=== PATIENT | male | born 1985 | race Caucasian/White ===

== ENCOUNTER 2022-06-17 21:37 | Inpatient (IN) | payer BC, OTHER ==
[2022-06-17] MEDS ORDERED: Acetaminophen 500 MG Tab PO ONE (21:58)
[2022-06-17] MEDS ORDERED: Sodium Chloride 0.9% 10 ML Syringe FLUSH PRN (22:02)
[2022-06-17] MEDS ORDERED: Lactated Ringers 1,000 ML IV ONE ×2 (22:03→23:30)
[2022-06-17] MEDS: Sodium Chloride 0.9% 10 ML Syringe FLUSH PRN ×2 (22:26→22:27)
[2022-06-17 22:28] LABS: BASE EXCESS VENOUS 0.6 mm/L; BASOPHILS ABSOLUTE AUTO 0.06 K/uL (0.00-0.10); BASOPHILS PERCENT AUTO 0.3 % (0.1-1.3); BICARBONATE,VENOUS 25.3 mmol/L; CARBOXYHEMOGLOBIN 2.2 % (0.0-1.6); EOSINOPHILS ABSOLUTE AUTO 0.04 K/uL (0.00-0.40); EOSINOPHILS PERCENT AUTO 0.2 % (0.0-5.4); HEMATOCRIT 41.8 % (38.4-49.7); IMMATURE GRAN ABSOLUTE AUTO 0.21 K/uL (0.00-0.23); LYMPHOCYTES ABSOLUTE AUTO 0.64 K/uL (0.8-3.3); LYMPHOCYTES PERCENT AUTO 2.9 % (11.4-47.7); MEAN CORPUSCULAR HEMOGLOBIN 28.1 pg (31.6-35.5); MEAN CORPUSCULAR HGB CONC 31.1 g/dL (31.6-35.5); MEAN CORPUSCULAR VOLUME 90.5 fL (81.4-99.0); METHEMOGLOBIN 0.7 %; MONOCYTES ABSOLUTE AUTO 1.11 K/uL (0.20-0.90); MONOCYTES PERCENT AUTO 5.1 % (3.3-12.6); NEUTROPHILS ABSOLUTE AUTO 19.88 K/uL (1.0-7.6); NEUTROPHILS PERCENT AUTO 90.5 % (40.0-78.1); O2 SATURATION VENOUS 45.3; PCO2 VENOUS 42.9 mm/Hg; PH,VENOUS 7.388 (7.350-7.450); PLATELET COUNT,PLT 309 K/uL (130-375); RED BLOOD CELL COUNT 4.62 M/uL (4.14-5.76); TOTAL HEMOGLOBIN 13.4 g/dL (13.5-18.0); WHITE BLOOD CELL COUNT,WBC 21.9 K/uL (3.2-11.0)
[2022-06-17 22:30] LABS: PO2 VENOUS 27.8 mm/Hg
[2022-06-17] MEDS ORDERED: Vancomycin 1 GM SDV ONE (22:38)
[2022-06-17 22:45] LABS: A/G RATIO 0.7 (1.2-2.2); ALANINE AMINOTRANSFERASE,ALT 81 U/L (12-78); ALBUMIN 3.5 g/dL (3.4-5.0); ALKALINE PHOSPHATASE 85 U/L (46-116); ASPARTATE AMNIOTRANSFERASE,AST 58 U/L (15-37); BILIRUBIN TOTAL 0.6 mg/dL (0.2-1.0); BLOOD UREA NITROGEN,BUN 13 mg/dL (7-18); CARBON DIOXIDE,CO2 26 mmol/L (21-32); CHLORIDE,CL 100 mmol/L (100-108); ESTIMATED GFR 100 mL/min (>60); GLUCOSE RANDOM 101 mg/dL (74-106); POTASSIUM,K 4.5 mmol/L (3.6-5.2); PROTEIN TOTAL,TP 8.2 g/dL (6.4-8.2); SODIUM,NA 134 mmol/L (140-148)
[2022-06-17 22:53] LABS: LACTIC ACID 1.9 mmol/L (0.4-2.0)
[2022-06-17] MEDS ORDERED: VANCOMYCIN IV SCH (23:00)
[2022-06-17] MEDS ORDERED: SODIUM CHLORIDE 0.9% IV SCH (23:00)
[2022-06-17 23:04] LABS: ANION GAP 12.5 mmol/L (5.0-14.0)
[2022-06-17 23:25] LABS: APPEARANCE,URINE CLEAR (CLEAR); BILIRUBIN,URINE NEGATIVE (NEGATIVE); COLOR,URINE YELLOW (YELLOW); GLUCOSE,URINE NEGATIVE (NEGATIVE); KETONES,URINE NEGATIVE (NEGATIVE); LEUKOCYTE ESTERASE,URINE NEGATIVE (NEGATIVE); NITRITE,URINE NEGATIVE (NEGATIVE); OCCULT BLOOD,URINE NEGATIVE (NEGATIVE); PH,URINE 5.5 (5.0-8.0); PROTEIN,URINE NEGATIVE (NEGATIVE); UROBILINOGEN,URINE 0.2 EU/dL (0.2-1.0)
[2022-06-17 23:33] LABS: AMORPHOUS SEDIMENT,URINE NOT SEEN; BACTERIA,URINE RARE; EPITHELIAL CELLS,URINE FEW; MUCUS,URINE NOT SEEN; RBC,URINE 0-5 (0-5); WBC,URINE 0-5 (0-5)
[2022-06-17] MEDS ORDERED: Ibuprofen 600 MG Tab PO ONE (23:45)
[2022-06-17] MEDS ORDERED: Ibuprofen 600 MG Tab ONE (23:47)
[2022-06-18] MEDS ORDERED: Lactated Ringers 1,000 ML IV SCH (00:30)
[2022-06-18] MEDS: Acetaminophen 325 MG Tab PO PRN ×4 (02:20→22:10)
[2022-06-18 04:33] LABS: HEMATOCRIT 38.6 % (38.4-49.7); HEMOGLOBIN 12.1 g/dL (12.9-16.9); MEAN CORPUSCULAR HGB CONC 31.3 g/dL (31.6-35.5); MEAN CORPUSCULAR VOLUME 89.4 fL (81.4-99.0); RED BLOOD CELL COUNT 4.32 M/uL (4.14-5.76)
[2022-06-18 04:58] LABS: WHITE BLOOD CELL COUNT,WBC 33.3 K/uL (3.2-11.0)
[2022-06-18 05:02] LABS: A/G RATIO 0.7 (1.2-2.2); ALANINE AMINOTRANSFERASE,ALT 69 U/L (12-78); ALBUMIN 3.1 g/dL (3.4-5.0); ALKALINE PHOSPHATASE 72 U/L (46-116); ASPARTATE AMNIOTRANSFERASE,AST 44 U/L (15-37); BILIRUBIN TOTAL 0.7 mg/dL (0.2-1.0); BLOOD UREA NITROGEN,BUN 14 mg/dL (7-18); CALCIUM 8.4 mg/dL (8.5-10.1); CARBON DIOXIDE,CO2 22 mmol/L (21-32); CHLORIDE,CL 101 mmol/L (100-108); CREATININE 1.1 mg/dL (0.8-1.3); ESTIMATED GFR 89 mL/min (>60); GLUCOSE RANDOM 110 mg/dL (74-106); POTASSIUM,K 3.8 mmol/L (3.6-5.2); PROTEIN TOTAL,TP 7.3 g/dL (6.4-8.2); SODIUM,NA 133 mmol/L (140-148)
[2022-06-18 05:14] LABS: ANION GAP 13.8 mmol/L (5.0-14.0)
[2022-06-18 08:45] LABS: HEMOGLOBIN A1C 5.8 % (4.5-6.2)
[2022-06-18] MEDS: Ibuprofen 600 MG Tab PO PRN ×3 (09:55→22:10)
[2022-06-18] MEDS: Multivitamins with Iron/Calcium/Folic Acid/Minerals Tab PO SCH (09:57)
[2022-06-18] MEDS: Triamcinolone Acetonide 0.1% Oint 15 GM Tube TOP SCH ×2 (11:59→20:51)
[2022-06-18] MEDS: Lactated Ringers 1,000 ML IV SCH (20:03)
[2022-06-18] MEDS: Nicotine 21 MG/24 Hr Patch TRDERM PRN (20:51)
[2022-06-19] MEDS: Acetaminophen 325 MG Tab PO PRN ×3 (02:06→17:58)
[2022-06-19] MEDS: Ibuprofen 600 MG Tab PO PRN ×2 (06:10→20:00)
[2022-06-19 06:12] LABS: HEMATOCRIT 41.6 % (38.4-49.7); HEMOGLOBIN 12.9 g/dL (12.9-16.9); MEAN CORPUSCULAR HEMOGLOBIN 28.1 pg (31.6-35.5); MEAN CORPUSCULAR VOLUME 90.6 fL (81.4-99.0); RED BLOOD CELL COUNT 4.59 M/uL (4.14-5.76); WHITE BLOOD CELL COUNT,WBC 16.7 K/uL (3.2-11.0)
[2022-06-19 06:29] LABS: CALCIUM 8.9 mg/dL (8.5-10.1); CREATININE 0.9 mg/dL (0.8-1.3); EST CRCL DRUG DOSING (CG) 124.54 mL/min; POTASSIUM,K 3.9 mmol/L (3.6-5.2)
[2022-06-19 06:38] LABS: ANION GAP 10.9 mmol/L (5.0-14.0)
[2022-06-19] MEDS: Lactated Ringers 1,000 ML IV SCH (07:26)
[2022-06-19] MEDS: Triamcinolone Acetonide 0.1% Oint 15 GM Tube TOP SCH ×2 (09:06→21:31)
[2022-06-19] MEDS: Multivitamins with Iron/Calcium/Folic Acid/Minerals Tab PO SCH (09:06)
[2022-06-19] MEDS: Nicotine 21 MG/24 Hr Patch TRDERM PRN (10:09)
[2022-06-20] MEDS: Ibuprofen 600 MG Tab PO PRN ×2 (04:34→23:20)
[2022-06-20 04:54] LABS: HEMATOCRIT 36.3 % (38.4-49.7); HEMOGLOBIN 11.3 g/dL (12.9-16.9); MEAN CORPUSCULAR HEMOGLOBIN 28.2 pg (31.6-35.5); MEAN CORPUSCULAR HGB CONC 31.1 g/dL (31.6-35.5); MEAN CORPUSCULAR VOLUME 90.5 fL (81.4-99.0); RED BLOOD CELL COUNT 4.01 M/uL (4.14-5.76); WHITE BLOOD CELL COUNT,WBC 10.9 K/uL (3.2-11.0)
[2022-06-20 05:10] LABS: C-REACTIVE PROTEIN 19.85 mg/dL (0.0-0.3); CALCIUM 8.4 mg/dL (8.5-10.1); CREATININE 0.9 mg/dL (0.8-1.3); EST CRCL DRUG DOSING (CG) 124.72 mL/min; POTASSIUM,K 3.6 mmol/L (3.6-5.2)
[2022-06-20 05:21] LABS: ANION GAP 13.6 mmol/L (5.0-14.0)
[2022-06-20] MEDS: Multivitamins with Iron/Calcium/Folic Acid/Minerals Tab PO SCH (08:30)
[2022-06-20] MEDS: Triamcinolone Acetonide 0.1% Oint 15 GM Tube TOP SCH ×2 (08:31→21:08)
[2022-06-20] MEDS: Nicotine 21 MG/24 Hr Patch TRDERM PRN (10:53)
[2022-06-20] MEDS: Acetaminophen 325 MG Tab PO PRN (17:58)
[2022-06-21 06:58] VITALS: BP 137/93; PULSE 84
[2022-06-21] MEDS ORDERED: Sulfamethoxazole/Trimethoprim 800-160 MG Tab PO SCH (09:00)
[2022-06-21] MEDS: Multivitamins with Iron/Calcium/Folic Acid/Minerals Tab PO SCH (09:34)
[2022-06-21] MEDS: Triamcinolone Acetonide 0.1% Oint 15 GM Tube TOP SCH (09:35)
== END 2022-06-21 09:59 | disposition home or self-care (01) | DRG 383 ==
LOC: JP.ED 21:37 → JP.MS 06-18 00:20
PROVIDERS: ADMIT Family Medicine; ATTEND Internal Medicine
DX: L03.116 Cellulitis of left lower limb (principal); E66.01 Morbid (severe) obesity due to excess calories; Z68.44 Body mass index [BMI] 60.0-69.9, adult; L40.9 Psoriasis, unspecified; F17.210 Nicotine dependence, cigarettes, uncomplicated; Z20.822 Contact with and (suspected) exposure to COVID-19; I87.8 Other specified disorders of veins; E11.65 Type 2 diabetes mellitus with hyperglycemia; Z79.899 Other long term (current) drug therapy
CPT/HCPCS: 36415; 71045; 71045-26; 80048; 80053; 80202; 81001; 82803; 83036; 83605; 84145; 85025; 85027; 86140; 87040; 87086; 96361; 96365; 99232; 99238; 99285; 99285-25; A9270-GY; J0713; J3370; J3490; J7050; J7120; U0002

== ENCOUNTER 2023-04-30 15:23 | Inpatient (IN) | payer BC ==
[2023-04-30 16:25] LABS: CORONAVIRUS COVID-19 NAA NEGATIVE (NEGATIVE); INFLUENZA A NAA NEGATIVE (NEGATIVE); INFLUENZA B NAA NEGATIVE (NEGATIVE); RESPIRATORY SYNCYTIAL VIR NAA NEGATIVE (NEGATIVE)
[2023-04-30 16:40] LABS: BASE EXCESS VENOUS -0.1 mm/L; BASOPHILS ABSOLUTE AUTO 0.05 K/uL (0.00-0.10); BASOPHILS PERCENT AUTO 0.2 % (0.1-1.3); BICARBONATE,VENOUS 22.2 mmol/L; CARBOXYHEMOGLOBIN 2.5 % (0.0-1.6); HEMATOCRIT 37.3 % (38.4-49.7); IMMATURE GRAN ABSOLUTE AUTO 0.41 K/uL (0.00-0.23); MEAN CORPUSCULAR HEMOGLOBIN 27.8 pg (31.6-35.5); MEAN CORPUSCULAR HGB CONC 32.2 g/dL (31.6-35.5); MEAN CORPUSCULAR VOLUME 86.3 fL (81.4-99.0); METHEMOGLOBIN 0.7 %; MONOCYTES PERCENT AUTO 3.5 % (3.3-12.6); NEUTROPHILS ABSOLUTE AUTO 18.22 K/uL (1.0-7.6); NEUTROPHILS PERCENT AUTO 90.3 % (40.0-78.1); O2 SATURATION VENOUS 52.8; OXYHEMOGLOBIN 51.1 %; PCO2 VENOUS 29.9 mm/Hg; PH,VENOUS 7.482 (7.350-7.450); PLATELET COUNT,PLT 242 K/uL (130-375); PO2 VENOUS 26.9 mm/Hg; RED BLOOD CELL COUNT 4.32 M/uL (4.14-5.76); TOTAL HEMOGLOBIN 12.5 g/dL (13.5-18.0); WHITE BLOOD CELL COUNT,WBC 20.2 K/uL (3.2-11.0)
[2023-04-30 16:57] LABS: INR 1.3; PROTHROMBIN TIME 12.6 sec (9.2-10.6)
[2023-04-30] MEDS: Sodium Chloride 0.9% 1,000 ML IV ONE (17:01)
[2023-04-30] MEDS: Vancomycin 2 GM in Sodium Chloride 0.9% 500 ML IV ONE (17:01)
[2023-04-30 17:02] LABS: A/G RATIO 0.6 (1.2-2.2); ALANINE AMINOTRANSFERASE,ALT 84 U/L (12-78); ALKALINE PHOSPHATASE 76 U/L (46-116); ANION GAP 17.6 mmol/L (5.0-14.0); ASPARTATE AMNIOTRANSFERASE,AST 140 U/L (15-37); BILIRUBIN TOTAL 1.3 mg/dL (0.2-1.0); BLOOD UREA NITROGEN,BUN 15 mg/dL (7-18); CALCIUM 8.9 mg/dL (8.5-10.1); CARBON DIOXIDE,CO2 21 mmol/L (21-32); CHLORIDE,CL 96 mmol/L (100-108); CREATININE 1.5 mg/dL (0.8-1.3); ESTIMATED GFR 61 mL/min (>60); GLUCOSE RANDOM 163 mg/dL (74-106); POTASSIUM,K 3.6 mmol/L (3.6-5.2); PROTEIN TOTAL,TP 7.8 g/dL (6.4-8.2); SODIUM,NA 131 mmol/L (140-148)
[2023-04-30] MEDS: Dextrose 5%-Lactated Ringers 1,000 ML IV SCH ×2 (18:35→20:45)
[2023-04-30] MEDS ORDERED: Vancomycin 1 GM SDV IV SCH (19:30)
[2023-04-30] MEDS ORDERED: Ondansetron 4 MG/2 ML SDV IV PRN (19:30)
[2023-04-30] MEDS ORDERED: Sodium Chloride 0.9% 10 ML Syringe FLUSH PRN (19:30)
[2023-04-30] MEDS ORDERED: Polyethylene Glycol 3350 Powder 17 GM Packet PO PRN (19:30)
[2023-04-30] MEDS: Cefepime 2 GM in Sodium Chloride 0.9% 50 ML IV SCH (19:37)
[2023-04-30] MEDS: Acetaminophen 325 MG Tab PO PRN (19:48)
[2023-04-30] MEDS: Enoxaparin 40 MG/0.4 ML Syringe SUBCUT SCH (19:50)
[2023-04-30 20:45] LABS: CORONAVIRUS COVID-19 NAA NEGATIVE (NEGATIVE); INFLUENZA A NAA NEGATIVE (NEGATIVE); INFLUENZA B NAA NEGATIVE (NEGATIVE); RESPIRATORY SYNCYTIAL VIR NAA NEGATIVE (NEGATIVE)
[2023-04-30] MEDS: Ibuprofen 400 MG Tab PO PRN (21:56)
[2023-04-30 21:59] LABS: BILIRUBIN,URINE NEGATIVE (NEGATIVE); COLOR,URINE YELLOW (YELLOW); GLUCOSE,URINE 100 mg/dL (NEGATIVE); KETONES,URINE NEGATIVE (NEGATIVE); LEUKOCYTE ESTERASE,URINE NEGATIVE (NEGATIVE); NITRITE,URINE NEGATIVE (NEGATIVE); OCCULT BLOOD,URINE SMALL (NEGATIVE); PROTEIN,URINE 30 mg/dL (NEGATIVE); UROBILINOGEN,URINE 0.2 EU/dL (0.2-1.0)
[2023-04-30 22:04] LABS: APPEARANCE,URINE SLIGHTLY CLOUDY (CLEAR); RBC,URINE 0-5 (0-5)
[2023-04-30 22:05] LABS: BACTERIA,URINE MODERATE; WBC,URINE 0-5 (0-5)
[2023-04-30] MEDS: Sodium Chloride 0.9% 1,000 ML IV SCH (22:05)
[2023-04-30 22:06] LABS: AMORPHOUS SEDIMENT,URINE MODERATE; EPITHELIAL CELLS,URINE FEW; MUCUS,URINE RARE
[2023-05-01 04:59] LABS: HEMATOCRIT 34.7 % (38.4-49.7); HEMOGLOBIN 11.6 g/dL (12.9-16.9); MEAN CORPUSCULAR HEMOGLOBIN 27.9 pg (31.6-35.5); MEAN CORPUSCULAR HGB CONC 33.4 g/dL (31.6-35.5); MEAN CORPUSCULAR VOLUME 83.4 fL (81.4-99.0); RED BLOOD CELL COUNT 4.16 M/uL (4.14-5.76); WHITE BLOOD CELL COUNT,WBC 15.7 K/uL (3.2-11.0)
[2023-05-01 05:13] LABS: CALCIUM 8.1 mg/dL (8.5-10.1); CREATININE 1.3 mg/dL (0.8-1.3); EST CRCL DRUG DOSING (CG) 87.92 mL/min; MAGNESIUM 1.5 mg/dL (1.8-2.4); POTASSIUM,K 3.8 mmol/L (3.6-5.2)
[2023-05-01 05:16] LABS: ANION GAP 17.8 mmol/L (5.0-14.0)
[2023-05-01] MEDS: Magnesium Oxide 400 MG Tab PO SCH (08:58)
[2023-05-01] MEDS: Magnesium Sulfate/Water 2 GM in Premix Bag 1 BAG IV SCH (08:58)
[2023-05-01 17:17] LABS: CALCIUM 8.5 mg/dL (8.5-10.1); CREATININE 1.2 mg/dL (0.8-1.3); EST CRCL DRUG DOSING (CG) 95.25 mL/min
[2023-05-01] MEDS: Potassium Chloride 20 MEQ Tab.ER PO SCH (18:07)
[2023-05-02 05:08] LABS: HEMATOCRIT 32.2 % (38.4-49.7); HEMOGLOBIN 10.4 g/dL (12.9-16.9); MEAN CORPUSCULAR HEMOGLOBIN 27.5 pg (31.6-35.5); MEAN CORPUSCULAR HGB CONC 32.3 g/dL (31.6-35.5); MEAN CORPUSCULAR VOLUME 85.2 fL (81.4-99.0); RED BLOOD CELL COUNT 3.78 M/uL (4.14-5.76); WHITE BLOOD CELL COUNT,WBC 9.2 K/uL (3.2-11.0)
[2023-05-02 05:20] LABS: CALCIUM 8.2 mg/dL (8.5-10.1); CREATININE 0.9 mg/dL (0.8-1.3); MAGNESIUM 2.1 mg/dL (1.8-2.4); POTASSIUM,K 3.7 mmol/L (3.6-5.2)
[2023-05-02 05:34] LABS: ANION GAP 15.7 mmol/L (5.0-14.0)
[2023-05-02] MEDS: Furosemide 20 MG/2 ML VIAL IVPUSH ONE (09:32)
[2023-05-02] MEDS: Potassium Chloride 20 MEQ Tab.ER PO ONE ×2 (09:32→17:05)
[2023-05-02] MEDS: Furosemide 20 MG/2 ML VIAL IVPUSH SCH (19:20)
[2023-05-03 06:01] LABS: CALCIUM 8.3 mg/dL (8.5-10.1); CREATININE 0.9 mg/dL (0.8-1.3); POTASSIUM,K 3.7 mmol/L (3.6-5.2)
[2023-05-03 06:03] LABS: ANION GAP 14.7 mmol/L (5.0-14.0)
[2023-05-03] MEDS: Doxycycline 100 MG Cap PO SCH (19:55)
[2023-05-04 05:56] VITALS: BP 129/93; PULSE 77
== END 2023-05-04 11:00 | disposition home or self-care (01) | DRG 720 ==
LOC: JP.ED 15:23 → JP.ICU 17:15 → JP.MS 05-02 09:26
PROVIDERS: ADMIT Hospitalist; ATTEND Internal Medicine
DX: A41.9 Sepsis, unspecified organism (principal); E66.01 Morbid (severe) obesity due to excess calories; E87.20 Acidosis, unspecified; Z68.44 Body mass index [BMI] 60.0-69.9, adult; L03.116 Cellulitis of left lower limb; G47.30 Sleep apnea, unspecified; G47.33 Obstructive sleep apnea (adult) (pediatric); I87.8 Other specified disorders of veins; Z79.899 Other long term (current) drug therapy; Z86.16 Personal history of COVID-19; Z98.890 Other specified postprocedural states
CPT/HCPCS: 0241U; 36415; 71045; 71045-26; 76881-LT; 80048; 80053; 80202; 81001; 82803; 83605; 83735; 84145; 85025; 85027; 85610; 87040; 96374; 99222; 99231; 99232; 99238; 99284; 99285-25; A9270-GY; J0692; J1650; J1940; J3370; J3475; J3490; J7030; J7040; J7050; J7121